=== PATIENT | female | born 1975 | race Caucasian/White ===

== ENCOUNTER 2019-03-08 19:49 | Emergency (ER) | payer SELFPAY ==
[~2019-03-08] VITALS: Ht 152.4 cm; Wt 109.8 kg
[~2019-03-08 19:49] MED LIST: CLIN300C8 PO; HYDR1TAB13 PO
[2019-03-08 20:51] LABS: BASOPHILS # (AUTO) 0.03 x10^3/uL (0-0.1); BASOPHILS % (AUTO) 0 % (0-1); EOSINOPHILS # (AUTO) 0.13 x10^3/uL (0-0.4); EOSINOPHILS % (AUTO) 1 % (1-7); LYMPHOCYTES # (AUTO) 3.33 x10^3/uL (1-3.4); LYMPHOCYTES % (AUTO) 27 % (22-44); MD NO; MEAN CORPUSCULAR HEMOGLOBIN 34.7 pg (27.0-34.8); MEAN CORPUSCULAR HGB CONC 32.9 g/dL (32.4-35.8); MEAN CORPUSCULAR VOLUME 105.2 fL (80-100); MEAN PLATELET VOLUME 9.3 fL (7.4-10.4); MONOCYTES # (AUTO) 0.18 x10^3/uL (0.2-0.8); MONOCYTES % (AUTO) 2 % (2-9); NEUTROPHILS # (AUTO) 8.52 x10^3/uL (1.8-6.8); NEUTROPHILS % (AUTO) 70 % (42-75); PLATELET COUNT 241 x10^3/uL (130-400); RED BLOOD COUNT 4.34 x10^6/uL (3.82-5.3); RED CELL DISTRIBUTION WIDTH 14.2 % (9.6-15.2)
[2019-03-08] MEDS ORDERED: LORazepam 1MG TABLET ONE (20:58)
[2019-03-08] MEDS ORDERED: LORazepam 1MG TABLET PO ONE (21:00)
[2019-03-08 21:08] LABS: MICROSCOPIC AUTO
[2019-03-08 21:13] LABS: CULTURE INDICATED? NO
--- NOTE | 2019-03-08 21:18 | NUR ---
Pt reports feeling increasingly tired the last few days "I had to get up from my desk just to stay awake" pt feels as if her heart is racing, pt on cont quality assurance monitor final, ekg complete. HR below 100. Friend at bedside, pt medicated per mar
[2019-03-08 21:25] LABS: ALBUMIN 3.6 g/dL (3.4-5.0); ANION GAP 10 mmol/L (5-15); CALCIUM 8.9 mg/dL (8.5-10.1); CHLORIDE 107 mmol/L (98-107); CREATININE 0.81 mg/dL (0.55-1.02)
[2019-03-08 21:51] VITALS: BP 130/75
== END 2019-03-08 22:29 | disposition home or self-care (01) ==
LOC: ED 22:10
DX: B34.9 Viral infection, unspecified (principal); R53.1 Weakness; F17.210 Nicotine dependence, cigarettes, uncomplicated
CPT/HCPCS: 36415; 71046; 80048; 81001; 82040; 84443; 84703; 85025; 93005; 99284